=== PATIENT | female | born 1955 | race Caucasian/White ===

== ENCOUNTER 2017-04-28 12:23 | Emergency (ER) | payer MEDICAID ==
[~2017-04-28] VITALS: Ht 157.5 cm; Wt 77.6 kg
[2017-04-28] MEDS ORDERED: ASPIRIN 81MG TA81 MG PO (12:36)
[2017-04-28] MEDS ORDERED: AVPAK AZITHROM250 MG PO (12:36)
[2017-04-28] MEDS ORDERED: CARVEDILOL6.25 M1 PO (12:37)
[2017-04-28] MEDS ORDERED: AMLODIPINE BES10 MG PO (12:37)
[2017-04-28] MEDS ORDERED: LEVOTHYROXINE0.15 M1 PO (12:38)
[2017-04-28] MEDS ORDERED: CLOPIDOGREL75 M2 PO (12:38)
[2017-04-28] MEDS ORDERED: ATORVASTATIN CA20 M1 PO (12:38)
[2017-04-28] MEDS ORDERED: FLUOXETINE HCL40 MG PO (12:38)
[2017-04-28 12:57] LABS: HEMOGLOBIN 13.3 g/dL (12.2-16.2)
[2017-04-28 12:58] LABS: LYMPH % 23.5 % (10-50.0)
[2017-04-28 12:59] LABS: LYMPH # 2.2 K/mm3 (0.7-4.5)
--- NOTE | 2017-04-28 13:45 | Emergency Room Report ---
History of Present Illness Time Seen by [id number] Presenting Problem in Triage Pt arrived:Wheelchair Presenting Problem:PT REPORTS SOA FOR APPROX 1 WEEK, PRODUCTIVE COUGH. 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 N Clinical Suspician of Infection? N Mental Status: 1 - Regular (Normal Baseline) Sepsis Risk:Low Sepsis Risk Have you (or family members/close friends) recently traveled outside the [place]? N If Yes, where/when: Have you had exposure to infectious disease within the past month? N TB? Other? Specify: Comment The patient says she has been sick for one week. She has chronic obstructive pulmonary disease. A week ago she began having increasing cough and sputum went from clear to yellow. She has rhinorrhea. She has increasing shortness of breath and wheezing. Dyspnea is primarily on exertion. No fever. She does get chills. She saw her primary care physician on Wednesday 2 days ago and was given a steroid shot and was started on Zithromax. She was told if she did not improve in a couple of days to get a chest x-ray. She says they do not have a Hospital in [place] so she came here. She does not use a nebulizer at home. She is not on oxygen. She does have an inhaler. ALLERGIES Coded Allergies: adhesive (10/01/15) ALLERGY: BAND-AIDS aspirin ("KIND OF MAKES HER SICK" 10/22/15) Home Medications Reported Medications Azithromycin (Avpak Azithromycin) 250 MG PO DAILY ASPIRIN (Aspirin) 81 MG PO DAILY Amlodipine Besylate (Amlodipine Besylate) 10 MG PO DAILY #30 Carvedilol 6.25 MG PO BID #60 Atorvastatin Calcium 20 MG PO DAILY #30 Fluoxetine Hcl 40 MG PO DAILY #30 Levothyroxine Sodium 0.15 MG PO DAILY #30 CLOPIDOGREL BISULFATE (Clopidogrel) 75 MG PO DAILY #30 History Medical History General CAD? No Angina: Yes [place]: No Hypertension? Yes Hyperlipidemia? Yes CHF? No DVT? No PE? No COPD? Yes Asthma? Yes Anemia? No GERD? No Gastric ulcers? No GI Bleed? No Hernia? No Thyroid Problems? No Hypothyroidism? Yes CVA? No Seizures? No Diabetes? No Renal Insuffiency? No End Stage Renal Disease? No UTI? No Stones? No GB Disease: Yes Nephritic Syndrome? No Asplenia? No Hepatitis? No Sickle Cell Disease? No Arthritis? No Migraines? No Cataracts? No Glaucoma? No MRSA? No HIV? No TB? No Anxiety? Yes Depression? Yes Cancer? No More? No Immunization Hx DT/Tetanus Unknown Flu Refused Pneumonia Received In Past Surgical Hx Previous Surgery?Y THYROIDECTOMY CHOLEY LEFT NIPPLE REMOVED TUBAL LIGATION Family History Family Hx Diabetes No CAD No Hypertension Yes Hyperlipidemia Yes Cancer Yes TB Yes Social History Smoking Hx Smoker: Current Every Day Smoker Tobacco: Yes Type Cigarettes Packs/day 1 1/2 - 2 Packs Alcohol Alcohol: No Review of Systems All Other Systems Reviewed and Negative Constitutional chills, denies fever ENT nose discharge. Respiratory cough, shortness of breath, wheezing Cardiovascular denies chest pain Physical Exam Vital Signs Vital Signs Date Time Temp Pulse Resp B/P Pulse O2 O2 Flow FiO2 Ox Delivery Rate 04/28 1358 98.0 73 18 129/75 93 04/28 1349 67 18 114/67 91 04/28 1308 70 20 142/75 92 04/28 1228 98.1 72 18 149/77 91 General Appearance no apparent distress Eye Exam - bilateral eye normal exam, bilateral eye PERRL, bilateral eye EOMI Ear, Nose, Throat hearing grossly normal, normal ENT inspection Neck normal inspection, non-tender, supple, full range of motion Respiratory Status Yes: trachea midline, chest symmetrical. No: respiratory distress. Lung Sounds bilateral: wheezing (a few scattered wheezes). Cardiovascular normal exam, regular rate/rhythm, no peripheral edema, no gallop, no JVD, no murmur, no rub, normal peripheral pulses Peripheral Pulses Pulses normal Yes Gastrointestinal normal bowel sounds, normal exam, non tender, soft, no organomegaly Extremities non-tender, normal range of motion, normal inspection Neurologic alert, drafter electromechanical II-XII nml as tested, normal exam, oriented x 3 Mental status normal mood/affect Skin intact, normal color, warm/dry Comments The patient states she feels much better after nebulizer treatment prior to my exam. Breathing feels back to baseline. A few scattered wheezes. Medical Decision Making LABS/Meds/Orders Pt receiving controlled substance in ED? No Results/Orders Laboratory Tests 04/28/17 1230: Lactic Acid 1.4 04/28/17 1230: Sodium 137, Potassium 3.6, Chloride 104, Carbon Dioxide 27, BUN 12, Creatinine 1.2 H, Estimated Creat Clear 61, Estimated GFR (MDRD) 46 L, Glucose 150 H, Calcium 8.9, Total Bilirubin 0.3, AST 5 L, ALT 16, Alkaline Phosphatase 96, Total Protein 8.1, Albumin 3.7, Globulin 4.4 H, Albumin/Globulin Ratio 0.8 L, WBC 9.5, RBC 4.19 L, Hgb 13.3, Hct 41.4, MCV 98.9 H, RDW 13.6, Plt Count 313, Gran % 72.0, Gran # 6.8, Lymphocytes % 23.5, Monocytes % 4.5, Lymphocytes # 2.2, Monocytes # 0.4, PUBS MCHC 32.1, MCH 31.7 H Current Medication Orders Sig/Josh Start time Last Medication Dose Route Stop Time Status Admin Methylprednisolone 125 MG ONCE ONE 04/28 1315 DC 04/28 Sodium Succinate IV 04/28 1316 1307 Methylprednisolone 0 .STK-MED ONE 04/28 1305 DC Sodium Succinate .ROUTE Albuterol/Ipratropium 3 ML ONCE ONE 04/28 1245 DC 04/28 INH 04/28 124 1237 Sodium Chloride 10 ML PRN PRN 04/28 1245 DCD IV 04/29 1234 Albuterol/Ipratropium 0 .STK-MED ONE 04/28 1236 DC INH Orders Procedure Date/time Status RT REQUEST DUONEB 04/28 1234 Active IV SALINE LOCK 04/28 1234 Active CULTURE, BLOOD 04/28 1234 Active LACTIC ACID 04/28 1234 Complete CBC WITH AUTO DIFF 04/28 1234 Complete CHEM 12 PROFILE 04/28 1234 Complete Progress - 1:48 PM: Patient states she definitely feels well enough to go home. Departure Departure Disposition DC Home or Self Care(routine) Clinical Impression Primary Impression: Chronic obstructive pulmonary disease with (acute) exacerbation Secondary Impressions: Acute bronchitis Qualifiers: Bronchitis organism: unspecified organism Qualified Code: J20.9 - Acute bronchitis, unspecified Condition STABLE Referrals ALAYNA ROMERO (Family) Patient Instructions DI for Acute Bronchitis, DI for Chronic Obstructive Pulmonary Disease Additional Instructions Continue antibiotics, continue inhaler. Call your primary care provider today or tomorrow for follow-up. Prescriptions Current Visit Scripts Prednisone (Prednisone 10MG) 10 MG PO DAILY #27 TAB 6 po on days 1-2, then decrease dose by 1 pill per day until gone ED Critical Care Critical Care No at 1557
[2017-04-28] MEDS ORDERED: PREDNISONE 10MG10 MG PO (13:50)
[2017-04-28 13:58] VITALS: BP 129/75
--- NOTE | 2017-04-28 14:40 | RADIOLOGY REPORT PS360 ---
CHEST(2 VIEWS-NOT PORTABLE) HISTORY: SOA, COUGH ORDERING PHYSICIAN: Isaias Arevalo MD PATIENT AGE: 61 years COMPARISON: 10/08/2015 FINDINGS: The cardiomediastinal silhouette and pulmonary vascularity are within normal limits. The lungs are clear without infiltrates, suspicious nodules, or pleural effusions. No acute bony abnormalities. IMPRESSION: Negative chest, no acute finding
== END 2017-04-28 13:58 | disposition home or self-care (01) ==
LOC: ER 12:23
PROVIDERS: Emergency Medicine
DX: J44.1 Chronic obstructive pulmonary disease with (acute) exacerbation (principal); J20.9 Acute bronchitis, unspecified; J44.0 Chronic obstructive pulmonary disease with (acute) lower respiratory infection; Z72.0 Tobacco use; Z79.82 Long term (current) use of aspirin; I10 Essential (primary) hypertension; E78.5 Hyperlipidemia, unspecified; F41.8 Other specified anxiety disorders